=== PATIENT | female | born 1955 | race Caucasian/White ===

== ENCOUNTER 2016-06-22 18:29 | Emergency (ER) | payer OTHER, BC ==
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
[2016-06-22 18:45] VITALS: BP 140/88; PULSE 68; TEMP 99; BMI 25.8
[2016-06-22] MEDS ORDERED: IBUPROFEN 600 MG TABLET (FP) PO ONE ×2 (18:49→18:55)
[2016-06-22] MEDS ORDERED: CYCLOBENZAPRINE HCL 10 MG TABLET (FP) PO ONE (18:49)
[2016-06-22] MEDS ORDERED: CYCLOBENZAPRINE HCL 10 MG TABLET (FP) ONE (18:55)
== END 2016-06-22 19:36 | disposition home or self-care (01) ==
LOC: FER 18:29
DX: M54.5 Low back pain (principal); V43.52XA Car driver injured in collision with other type car in traffic accident, initial encounter; Y93.89 Activity, other specified; Y92.410 Unspecified street and highway as the place of occurrence of the external cause
CPT/HCPCS: 72070-TC; 72100-TC; 99282-25

== ENCOUNTER 2018-05-23 08:40 | Emergency (ER) | payer BC, OTHER ==
[2018-05-23 08:52] VITALS: PULSE 58; TEMP 98.5; BMI 25.8
[2018-05-23] MEDS ORDERED: IBUPROFEN 600 MG TABLET (FP) PO ONE ×2 (09:25→09:26)
--- NOTE | 2018-05-23 09:35 | PDOC ---
History of Present Illness - General Chief Complaint: Injury Stated Complaint: RIGHT KNEE AN DRIGHT WRIST INJURY S/P FALL AT WORK Time Seen by Provider: 05/23/18 08:46 History Source: Patient Exam Limitations: No Limitations - History of Present Illness Timing/Duration: 1-3 hours Severity: moderate Modifying Factors: improves with: rest Associated Symptoms: reports: denies symptoms Past History - Travel Traveled outside of the country in the last 30 days: No Close contact w/someone who was outside of country & ill: No - Past Medical History Allergies/Adverse Reactions: Allergies Allergy/AdvReac Type Severity Reaction Status Date / Time No Known Allergies Allergy Verified 05/23/18 08:41 Home Medications: Ambulatory Orders NK [No Known Home Medication] 05/23/18 COPD: No - Suicide/Smoking/Psychosocial Hx Smoking History: Never smoked Hx Alcohol Use: No Drug/Substance Use Hx: No Substance Use Type: None Review of Systems - Review of Systems Able to Perform ROS?: Yes Is the patient limited Portuguese proficient: Yes Constitutional: No: Symptoms Reported, See HPI, Chills, Diaphoresis, Fever, Loss of Appetite, Malaise, Night Sweats, Weakness, Weight Stable, Unintentional Wgt. Loss, Unexplained wgt Loss, Other HEENTM: No: Symptoms Reported, See HPI, Eye Pain, Blurred Vision, Tearing, Recent change in vision, Double Vision, Cataracts, Ear Pain, Ocular Prothesis, Ear Discharge, Nose Pain, Nose Congestion, Tinnitus, Nose Bleeding, Hearing Loss , Throat Pain, Throat Swelling, Mouth Pain, Dental Problems, Difficulty Swallowing, Mouth Swelling, Other Respiratory: No: Symptoms reported, See HPI, Cough, Orthopnea, Shortness of Breath, SOB with Exertion, SOB at Rest, Stridor, Wheezing, Productive cough, Hemoptysis, Other Cardiac (ROS): No: Symptoms Reported, See HPI, Chest Pain, Edema, Irregular Heart Rate, Lightheadedness, Palpitations, Syncope, Chest Tightness, Other ABD/GI: No: Symptoms Reported, See HPI, Abdominal Distended, Abd. Pain w/ defecation, Blood Streaked Bowels, Constipated, Diarrhea, Difficulty Swallowing , Nausea, Poor Appetite, Poor Fluid Intake, Rectal Bleeding, Vomiting, Indigestion, Abdominal cramping, Tarry Stools, Other : No: Symptoms Reported, See HPI, Burning, Dysuria, Discharge, Frequency, Flank Pain, Hematuria, Incontinence, Pain, Urgency, Testicular Mass, Testicular Swelling, Lesions, Testicular Pain, Other Musculoskeletal: Yes: See HPI, Joint Pain Integumentary: No: Symptoms Reported, See HPI, Bruising, Change in Color, Change in Hair/Nails, Dryness, Erythema, Flushing, Lesions, Lumps, Pallor, Pruritus, Rash, Sweating, Other Neurological: Yes: See HPI Endocrine: No: Intolerance to Cold All Other Systems: Reviewed and Negative *Physical Exam - Vital Signs Last Vital Signs Temp Pulse Resp BP Pulse Ox 98.5 F 58 L 18 168/71 100 05/23/18 08:40 05/23/18 08:40 05/23/18 08:40 05/23/18 08:40 05/23/18 08:40 - Physical Exam General Appearance: Yes: Nourished, Appropriately Dressed, Mild Distress, Moderate Distress HEENT: positive: CONSTANCE Neck: positive: Supple Respiratory/Chest: positive: Normal Breath Sounds Cardiovascular: positive: S1, S2 Extremity: positive: Normal Capillary Refill, Tender (Mild to moderate tenderness in the affected wrist, knee and hip-inguinal areas ar passive motion ), Pelvis Stable, Swelling (Minimally swollen knee without any skin damage. Full range of motion all extremities) Neurologic: positive: Fully Oriented, Alert, Normal Mood/Affect Medical Decision Making - Medical Decision Making Fully ambulating lady, X rays wnl as read by me Provided with cane for support and wrist splint Patient will follow with Private Ortho MD, [facility] CD provided 05/25/18 16:30 *DC/Admit/Observation/Transfer Diagnosis at time of Disposition: Right knee injury Qualifiers: Encounter type: initial encounter Qualified Code(s): S89.91XA - Unspecified injury of right lower leg, initial encounter Injury of hip, right Qualifiers: Encounter type: initial encounter Qualified Code(s): S79.911A - Unspecified injury of right hip, initial encounter Right wrist injury Qualifiers: Encounter type: initial encounter Qualified Code(s): S69.91XA - Unspecified injury of right wrist, hand and finger(s), initial encounter - Discharge Dispostion Disposition: HOME Condition at time of disposition: Stable Decision to Admit order: No - Referrals Referrals: Bertrand White MD [Staff Physician] - - Patient Instructions Printed Discharge Instructions: DI for Knee Sprain, How to Prevent Falls - Post Discharge Activity Forms/Work/School Notes: Back to Work
[2018-05-23 11:27] VITALS: BP 140/72
== END 2018-05-23 11:17 | disposition home or self-care (01) ==
LOC: FER 08:40
DX: S79.911A Unspecified injury of right hip, initial encounter (principal); S69.91XA Unspecified injury of right wrist, hand and finger(s), initial encounter; S89.91XA Unspecified injury of right lower leg, initial encounter; W18.39XA Other fall on same level, initial encounter; Y93.89 Activity, other specified; Y92.89 Other specified places as the place of occurrence of the external cause; Y99.0 Civilian activity done for income or pay
CPT/HCPCS: 73110-TC-RT-FY; 73523-TC-FY; 73560-TC-RT-FY; 99282-25

== ENCOUNTER 2018-09-30 10:54 | Emergency (ER) | payer OTHER ==
[2018-09-30 11:09] VITALS: BP 126/77; PULSE 73; TEMP 98.2; BMI 40.3
[2018-09-30] MEDS ORDERED: IBUPROFEN 600 MG TABLET (FP) PO ONE ×2 (11:32→11:37)
[2018-09-30] MEDS ORDERED: hydrOXYzine PAMOATE 25 MG CAPSULE (FP) PO ONE ×2 (11:32→11:37)
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
[2018-09-30] MEDS ORDERED: LIDOCAINE 5% TOPICAL PATCH ONE (12:05)
== END 2018-09-30 12:10 | disposition home or self-care (01) ==
LOC: FER 10:54
DX: S13.4XXA Sprain of ligaments of cervical spine, initial encounter (principal); V43.52XA Car driver injured in collision with other type car in traffic accident, initial encounter; Y93.89 Activity, other specified; Y92.410 Unspecified street and highway as the place of occurrence of the external cause
CPT/HCPCS: 99282-25

== ENCOUNTER 2020-01-21 13:25 | Emergency (ER) | payer BC ==
[2020-01-21 13:32] VITALS: BP 149/77; PULSE 73; TEMP 99; BMI 27.4
[2020-01-21] MEDS ORDERED: ACETAMINOPHEN 1000 MG/100 ML VIAL (NON FORMULARY) IVPB ONE (13:45)
[2020-01-21] MEDS ORDERED: SODIUM CHLORIDE 0.9% 500 ML INFUS.BAG IV ONE (13:45)
[2020-01-21] MEDS ORDERED: ACETAMINOPHEN INJECTION 100 ML IVPB ONE (13:58)
[2020-01-21 14:06] LABS: BASO % 3.2 % (0-2.0); EOS % 1.3 % (0-4.5); HEMATOCRIT 42.7 % (32.4-45.2); HEMOGLOBIN 14.5 GM/dl (10.7-15.3); LYMPH % 36.2 % (8-40); MCH 31.5 pg (25.7-33.7); MCHC 33.9 g/dl (32.0-36.0); MEAN CELL VOLUME 93.1 fl (80-96); MEAN PLT VOLUME 9.8 fl (7.5-11.1); MONO % 8.7 % (3.8-10.2); NEUT % 50.6 % (42.8-82.8); PLATELET COUNT 222 K/MM3 (134-434); RBC 4.59 M/mm3 (3.60-5.2); RDW 12.5 % (11.6-15.6); WHITE BLOOD COUNT 6.8 K/mm3 (4.0-10.8)
[2020-01-21 14:15] LABS: EPITHELIAL CELLS FEW /hpf
[2020-01-21 14:16] LABS: ALBUMIN 4.1 g/dl (3.4-5.0); BILIRUBIN,TOTAL 0.8 mg/dl (0.2-1); CALCIUM 8.7 mg/dl (8.5-10); CREATININE 0.9 mg/dl (0.55-1.3); POTASSIUM 4.1 mmol/L (3.5-5.1); TOT PROT 7.5 g/dl (6.4-8.2)
[2020-01-21] MEDS ORDERED: morphine CARPU-JECT 4 MG/1 ML DISP.SYRIN IVPUSH ONE (15:04)
[2020-01-21] MEDS ORDERED: morphine SULFATE 4 MG/ML VIAL ONE (15:05)
== END 2020-01-21 15:50 | disposition home or self-care (01) ==
LOC: FER 13:25
PROC: 3E0333Z Introduction of Anti-inflammatory into Peripheral Vein, Percutaneous Approach (ICD-10-PCS; principal; 2020-01-21)
PROC: 3E033NZ Introduction of Analgesics, Hypnotics, Sedatives into Peripheral Vein, Percutaneous Approach (ICD-10-PCS; 2020-01-21)
DX: K59.00 Constipation, unspecified (principal)
CPT/HCPCS: 36415; 74177-TC; 80053; 81003; 81015; 84484; 85025; 87086; 99285-25; J0131; Q9967

== ENCOUNTER 2020-01-21 19:29 | Emergency (ER) | payer BC | END 2020-01-21 19:35 | disposition home or self-care (01) | LOC: JVIRT 19:29 | DX: U07.1 COVID-19 (principal) | CPT/HCPCS: C9803; Q3014-GT; U0003 ==

== ENCOUNTER 2021-06-03 04:07 | Inpatient (IN) | payer BC, OTHER ==
[2021-06-02 09:53] VITALS: BMI 26.6
[~2021-06-03 04:07] MED LIST: BACITRACIN 15 GM TUBE TOPICAL OINTMENT TP ONE; BUPIVACAINE HCL/PF 0.5% (5MG/ML) 10 ML VIAL NR ONE
[2021-06-03] MEDS ORDERED: THROMBIN (BOVINE) 5,000 UNIT VIAL TP ONE ×4 (07:43→09:06)
[2021-06-03] MEDS ORDERED: BUPIVACAINE HCL/PF 0.5% (5MG/ML) 10 ML VIAL ONE ×2 (07:43→12:08)
[2021-06-03] MEDS ORDERED: BACITRACIN 15 GM TUBE TOPICAL OINTMENT ONE (07:43)
[2021-06-03] MEDS ORDERED: MIDAZOLAM HCL 2 MG/2 ML SINGLE DOSE VIAL ONE (07:54)
[2021-06-03] MEDS ORDERED: ROCURONIUM BROMIDE 50 MG/5 ML SYRINGE ONE (07:55)
[2021-06-03] MEDS ORDERED: PROPOFOL 20 ML ONE ×9 (07:56→10:19)
[2021-06-03] MEDS ORDERED: SUCCINYLCHOLINE CHLORIDE 200 MG/10 ML SYRINGE ONE (07:56)
[2021-06-03] MEDS ORDERED: VANCOMYCIN 1,000 MG VIAL (RESTRICTED TO ID ONLY) ONE (08:23)
[2021-06-03] MEDS ORDERED: ceFAZolin SODIUM 1 GM VIAL IVPB ONE (08:45)
[2021-06-03] MEDS ORDERED: VANCOMYCIN 1,000 MG VIAL (RESTRICTED TO ID ONLY) IVPB ONE (09:06)
[2021-06-03] MEDS ORDERED: BUPIVACAINE HCL/PF 0.5% (5MG/ML) 10 ML VIAL NR ONE (12:06)
[2021-06-03] MEDS ORDERED: ACETAMINOPHEN 1000 MG/100 ML BAG IVPB ONE (12:30)
[2021-06-03] MEDS ORDERED: SUGAMMADEX SODIUM 200 MG/2 ML VIAL ONE (12:35)
[2021-06-03] MEDS ORDERED: ACETAMINOPHEN INJECTION 100 ML IVPB ONE (12:40)
[2021-06-03] MEDS ORDERED: ONDANSETRON 4 MG/2 ML VIAL IVPUSH PRN ×2 (12:45→13:28)
[2021-06-03] MEDS ORDERED: BISACODYL 10 MG SUPP.RECT RC PRN (12:45)
[2021-06-03] MEDS ORDERED: BACITRACIN 15 GM TUBE TOPICAL OINTMENT TP ONE (13:00)
[2021-06-03] MEDS ORDERED: DEXAMETHASONE SOD PHOSPHATE 4 MG/1 ML VIAL IVPUSH ONE (13:28)
[2021-06-03] MEDS ORDERED: PROMETHAZINE HCL 25 MG/1 ML VIAL IVPB PRN (13:28)
[2021-06-03] MEDS ORDERED: DEXAMETHASONE SOD PHOSPHATE 4 MG/1 ML VIAL IVPUSH PRN (13:41)
[2021-06-03 14:04] LABS: HEMATOCRIT 38.1 % (32.4-45.2); HEMOGLOBIN 12.8 GM/dL (10.7-15.3); MCHC 33.6 g/dl (32.0-36.0); MEAN CELL VOLUME 89.1 fl (80-96); MEAN PLT VOLUME 8.7 fl (7.5-11.1); PLATELET COUNT 195 10^3/uL (134-434); RBC 4.27 M/mm3 (3.60-5.2); RDW 12.9 % (11.6-15.6); WHITE BLOOD COUNT 7.9 K/mm3 (4.0-10.0)
[2021-06-03] MEDS ORDERED: HYDROmorphone *PCA* 10MG/50ML DISP.SYRIN ONE (14:15)
[2021-06-03] MEDS ORDERED: HYDROmorphone *PCA* 10MG/50ML DISP.SYRIN PCA ONE (14:30)
[2021-06-03 14:49] LABS: CALCIUM 7.9 mg/dL (8.5-10.1)
[2021-06-03 14:50] LABS: BLOOD UREA NITROGEN 13.5 mg/dL (7-18)
[2021-06-03 14:53] LABS: CREATININE 0.8 mg/dL (0.55-1.3)
[2021-06-03] MEDS: D5-1/2NS+20 MEQ KCL - 20 MEQ/1,000 ML INFUS.BAG IV SCH (15:38)
[2021-06-03] MEDS: diazePAM 5 MG TABLET PO SCH ×2 (15:38→21:07)
[2021-06-03] MEDS: HYDROmorphone *PCA* 10MG/50ML DISP.SYRIN PCA SCH (15:39)
[2021-06-03] MEDS: LACTATED RINGERS SOLUTION 1,000 ML IV SCH (15:40)
[2021-06-03] MEDS: DOCUSATE SODIUM 100 MG CAPSULE (FP) PO SCH ×2 (15:41→21:06)
[2021-06-03] MEDS ORDERED: ceFAZolin SODIUM 1 GM VIAL ONE (17:58)
[2021-06-03] MEDS ORDERED: DEXTROSE 5%-WATER - 50 ML IVPB ONE (17:58)
[2021-06-03] MEDS: CEFAZOLIN 1 GM in DEXTROSE 5%-WATER - 50 ML IVPB SCH (18:05)
[2021-06-04] MEDS: D5-1/2NS+20 MEQ KCL - 20 MEQ/1,000 ML INFUS.BAG IV SCH ×3 (00:05→17:18)
[2021-06-04] MEDS ORDERED: ceFAZolin SODIUM 1 GM VIAL ONE ×2 (01:18→10:09)
[2021-06-04] MEDS ORDERED: DEXTROSE 5%-WATER - 50 ML IVPB ONE ×2 (01:19→10:09)
[2021-06-04] MEDS: CEFAZOLIN 1 GM in DEXTROSE 5%-WATER - 50 ML IVPB SCH ×2 (01:28→11:19)
[2021-06-04] MEDS: ACETAMINOPHEN 325 MG TABLET (FP) PO PRN ×2 (03:57→13:01)
[2021-06-04] MEDS: diazePAM 5 MG TABLET PO SCH ×3 (05:12→21:39)
[2021-06-04] MEDS: DOCUSATE SODIUM 100 MG CAPSULE (FP) PO SCH ×3 (05:13→21:39)
[2021-06-04] MEDS: LACTATED RINGERS SOLUTION 1,000 ML IV SCH (13:30)
[2021-06-04] MEDS: HYDROmorphone *PCA* 10MG/50ML DISP.SYRIN PCA SCH (14:41)
[2021-06-05] MEDS: ACETAMINOPHEN 325 MG TABLET (FP) PO PRN ×4 (00:18→21:34)
[2021-06-05] MEDS: diazePAM 5 MG TABLET PO SCH ×3 (05:00→21:34)
[2021-06-05] MEDS: DOCUSATE SODIUM 100 MG CAPSULE (FP) PO SCH ×3 (05:00→21:34)
[2021-06-05] MEDS: D5-1/2NS+20 MEQ KCL - 20 MEQ/1,000 ML INFUS.BAG IV SCH ×2 (06:17→14:18)
[2021-06-05] MEDS ORDERED: TAPENTADOL HYDROCHLORIDE 50 MG TABLET PO PRN (07:32)
[2021-06-05] MEDS: LACTATED RINGERS SOLUTION 1,000 ML IV SCH (14:19)
[2021-06-06] MEDS: diazePAM 5 MG TABLET PO SCH ×3 (05:04→21:40)
[2021-06-06] MEDS: DOCUSATE SODIUM 100 MG CAPSULE (FP) PO SCH ×3 (05:05→21:40)
[2021-06-06] MEDS: D5-1/2NS+20 MEQ KCL - 20 MEQ/1,000 ML INFUS.BAG IV SCH ×2 (06:27→14:50)
[2021-06-06] MEDS: LACTATED RINGERS SOLUTION 1,000 ML IV SCH (13:48)
[2021-06-06] MEDS: HEPARIN NA (PORCINE) 5,000 UNITS/ML 1ML VIAL SQ SCH (21:40)
[2021-06-07] MEDS: DOCUSATE SODIUM 100 MG CAPSULE (FP) PO SCH ×3 (06:00→21:04)
[2021-06-07] MEDS: diazePAM 5 MG TABLET PO SCH ×3 (06:00→21:05)
[2021-06-07] MEDS ORDERED: MAGNESIUM CITRATE 300 ML BOTTLE PO ONE ×2 (08:30→11:00)
[2021-06-07] MEDS: HEPARIN NA (PORCINE) 5,000 UNITS/ML 1ML VIAL SQ SCH ×2 (11:08→21:05)
[2021-06-07] MEDS: ACETAMINOPHEN 325 MG TABLET (FP) PO PRN (11:08)
[2021-06-07 13:19] LABS: EPI CELLS 12 /uL (0-25.1); HYALINE CASTS 1 /uL (0-3.1); URINE APPEARANCE CLEAR; URINE BACTERIA 1 /uL (0-1359); URINE BILIRUBIN NEGATIVE (NEGATIVE); URINE COLOR YELLOW; URINE GLUCOSE (UA) NEGATIVE (NEGATIVE); URINE KETONE NEGATIVE (NEGATIVE); URINE LEUK ESTERASE 1+ (NEGATIVE); URINE NITRITE NEGATIVE (NEGATIVE); URINE PROTEIN NEGATIVE (NEGATIVE); URINE RBC 37 /uL (0-23.9); URINE WBC 18 /uL (0-25.8)
[2021-06-08] MEDS: DOCUSATE SODIUM 100 MG CAPSULE (FP) PO SCH ×2 (05:24→14:55)
[2021-06-08] MEDS: diazePAM 5 MG TABLET PO SCH ×2 (05:24→14:56)
[2021-06-08 09:41] LABS: BASO % 0.9 % (0-2.0); EOS % 1.3 % (0-4.5); HEMATOCRIT 35.5 % (32.4-45.2); HEMOGLOBIN 12.3 GM/dL (10.7-15.3); LYMPH % 26.7 % (8-40); MCH 30.8 pg (25.7-33.7); MCHC 34.8 g/dl (32.0-36.0); MEAN CELL VOLUME 88.7 fl (80-96); MEAN PLT VOLUME 9.8 fl (7.5-11.1); MONO % 8.2 % (3.8-10.2); NEUT % 62.9 % (42.8-82.8); PLATELET COUNT 259 10^3/uL (134-434); RDW 12.9 % (11.6-15.6); WHITE BLOOD COUNT 7.8 K/mm3 (4.0-10.0)
[2021-06-08] MEDS: HEPARIN NA (PORCINE) 5,000 UNITS/ML 1ML VIAL SQ SCH (09:54)
[2021-06-08 11:09] LABS: CALCIUM 8.3 mg/dL (8.5-10.1)
[2021-06-08 11:10] LABS: ALBUMIN 2.9 g/dl (3.4-5.0); BLOOD UREA NITROGEN 11.6 mg/dL (7-18)
[2021-06-08 11:13] LABS: CREATININE 0.8 mg/dL (0.55-1.3)
[2021-06-08 11:14] LABS: TOT PROT 7.1 g/dl (6.4-8.2)
[2021-06-08 11:15] LABS: BILIRUBIN,TOTAL 0.7 mg/dL (0.2-1)
[2021-06-08 16:00] VITALS: BP 123/64; PULSE 68; TEMP 98.4
== END 2021-06-08 16:56 | disposition home or self-care (01) | DRG 455 ==
LOC: J2C 04:07 → J8W 15:32
PROVIDERS: ADMIT Neurological Surgery; ATTEND Neurological Surgery
PROC: 0SG1071 Fusion of 2 or more Lumbar Vertebral Joints with Autologous Tissue Substitute, Posterior Approach, Posterior Column, Open Approach (ICD-10-PCS; 2021-06-03)
PROC: 0SB20ZZ Excision of Lumbar Vertebral Disc, Open Approach (ICD-10-PCS; 2021-06-03)
PROC: 01NB0ZZ Release Lumbar Nerve, Open Approach (ICD-10-PCS; 2021-06-03)
PROC: 4A10X4G Monitoring of Central Nervous Electrical Activity, Intraoperative, External Approach (ICD-10-PCS; 2021-06-03)
PROC: 0SG10AJ Fusion of 2 or more Lumbar Vertebral Joints with Interbody Fusion Device, Posterior Approach, Anterior Column, Open Approach (ICD-10-PCS; principal; 2021-06-03 08:00)
DX: M48.061 Spinal stenosis, lumbar region without neurogenic claudication (principal); M51.16 Intervertebral disc disorders with radiculopathy, lumbar region; M85.88 Other specified disorders of bone density and structure, other site
CPT/HCPCS: 36415; 71045-TC-FY; 72100-TC-FY; 76000-TC-FY; 80048; 80053; 81003; 85025; 85027; 86850; 86900; 86901; 86922; 87086; 88304-TC; 94760; 97116-GP; 97161-GP; J1644

== ENCOUNTER 2023-08-29 14:11 | Emergency (ER) | payer BC, OTHER ==
[2023-08-29 14:29] VITALS: BP 138/73; PULSE 67; RESP 19; TEMP 98.5; BMI 25.8
== END 2023-08-29 15:22 | disposition home or self-care (01) ==
LOC: JERFT 14:11
DX: R21 Rash and other nonspecific skin eruption (principal)
CPT/HCPCS: 99282-25

== ENCOUNTER 2023-09-09 16:51 | Emergency (ER) | payer BC ==
[2023-09-09 16:57] VITALS: BMI 25.8
[2023-09-09] MEDS ORDERED: ACETAMINOPHEN INJECTION 100 ML IVPB ONE (19:33)
[2023-09-09] MEDS: ACETAMINOPHEN 1000 MG/100 ML BAG IVPB ONE (19:47)
[2023-09-09 19:54] LABS: BASO % 0.9 % (0-2.0); EOS % 0.7 % (0-4.5); HEMATOCRIT 41.7 % (32.4-45.2); HEMOGLOBIN 14.3 GM/dL (10.7-15.3); LYMPH % 24.7 % (8-40); MCHC 34.2 g/dl (32.0-36.0); MEAN CELL VOLUME 90.7 fl (80-96); MEAN PLT VOLUME 8.1 fl (7.5-11.1); MONO % 8.3 % (3.8-10.2); NEUT % 65.4 % (42.8-82.8); PLATELET COUNT 206 10^3/uL (134-434); RDW 13.6 % (11.6-15.6); WHITE BLOOD COUNT 8.1 K/mm3 (4.0-10.0)
[2023-09-09 20:23] LABS: POTASSIUM 3.8 mmol/L (3.5-5.1)
[2023-09-09 20:26] LABS: ALBUMIN 3.9 g/dl (3.4-5.0); BLOOD UREA NITROGEN 12.5 mg/dL (7-18); CALCIUM 8.6 mg/dL (8.5-10.1)
[2023-09-09 20:31] LABS: BILIRUBIN,TOTAL 0.5 mg/dL (0.2-1); TOT PROT 7.6 g/dl (6.4-8.2)
[2023-09-09 21:57] LABS: EPI CELLS 4 /uL (0-25.1); HYALINE CASTS 1 /uL (0-3.1); PH,URINE 6.5 (5.0-8.0); URINE APPEARANCE CLEAR; URINE BACTERIA 204 /uL (0-1359); URINE BILIRUBIN NEGATIVE (NEGATIVE); URINE COLOR YELLOW; URINE GLUCOSE (UA) NEGATIVE (NEGATIVE); URINE KETONE NEGATIVE (NEGATIVE); URINE LEUK ESTERASE 3+ (NEGATIVE); URINE NITRITE NEGATIVE (NEGATIVE); URINE PROTEIN NEGATIVE (NEGATIVE); URINE RBC 67 /uL (0-23.9); URINE UROBILINOGEN 0.2 mg/dL (0.2-1.0); URINE WBC 259 /uL (0-25.8)
[2023-09-09] MEDS ORDERED: CEFTRIAXONE 1 GM/50 ML BAG ONE (22:18)
[2023-09-09] MEDS ORDERED: KETOROLAC TROMETHAMINE 15 MG/ML VIAL ONE (22:18)
[2023-09-09] MEDS: KETOROLAC TROMETHAMINE 15 MG/ML VIAL IVPUSH ONE (22:23)
[2023-09-09] MEDS: CEFTRIAXONE 1 GM in DEXTROSE 5%-WATER - 50 ML IVPB ONE (22:23)
[2023-09-10] MEDS: ACETAMINOPHEN 1000 MG/100 ML BAG IVPB ONE (03:43)
[2023-09-10] MEDS: SODIUM CHLORIDE 1,000 ML IV STA (03:43)
[2023-09-10] MEDS ORDERED: ACETAMINOPHEN INJECTION 100 ML IVPB ONE (03:45)
[2023-09-10] MEDS ORDERED: KETOROLAC TROMETHAMINE 15 MG/ML VIAL ONE (04:01)
[2023-09-10] MEDS: KETOROLAC TROMETHAMINE 15 MG/ML VIAL IVPUSH ONE (04:24)
[2023-09-10 07:39] VITALS: BP 167/85; PULSE 55; RESP 16; TEMP 97.7
[2023-09-10] MEDS ORDERED: MORPHINE SULFATE 2 MG/ML SYRINGE ONE (08:03)
[2023-09-10] MEDS: morphine SULFATE 4 MG/ML VIAL IVPUSH ONE (08:16)
== END 2023-09-10 08:28 | disposition home or self-care (01) ==
LOC: JER 16:51
PROC: 3E03329 Introduction of Other Anti-infective into Peripheral Vein, Percutaneous Approach (ICD-10-PCS; principal; 2023-09-09)
PROC: 3E033NZ Introduction of Analgesics, Hypnotics, Sedatives into Peripheral Vein, Percutaneous Approach (ICD-10-PCS; 2023-09-09)
PROC: 3E0333Z Introduction of Anti-inflammatory into Peripheral Vein, Percutaneous Approach (ICD-10-PCS; 2023-09-09)
PROC: 3E0333Z Introduction of Anti-inflammatory into Peripheral Vein, Percutaneous Approach (ICD-10-PCS; 2023-09-09)
PROC: 3E0337Z Introduction of Electrolytic and Water Balance Substance into Peripheral Vein, Percutaneous Approach (ICD-10-PCS; 2023-09-09)
DX: R10.12 Left upper quadrant pain (principal)
CPT/HCPCS: 36415; 71046-TC-FY; 74177-TC; 80053; 81003; 83690; 84484; 85025; 93005; 93010; 99285-25; J0131; Q9967

== ENCOUNTER 2024-12-23 09:21 | Emergency (ER) | payer BC, OTHER ==
[2024-12-23 09:29] VITALS: RESP 16; TEMP 97.9; BMI 27.4
[2024-12-23] MEDS ORDERED: MECLIZINE HCL 25 MG TABLET (FP) ONE (10:12)
[2024-12-23] MEDS: MECLIZINE HCL 25 MG TABLET (FP) PO ONE (10:21)
[2024-12-23] MEDS: SODIUM CHLORIDE 0.9% 500 ML INFUS.BAG IV ONE (10:21)
[2024-12-23 10:22] LABS: ABSOLUTE IMMATURE GRANULOCYTES 0.01 x10^3/uL (0.0-0.031); BASOPHILS # 0.03 x10^3/uL (0.01-0.08); EOSINOPHIL % 1.5 % (0.7-5.8); EOSINOPHILS # 0.07 x10^3/uL (0.04-0.36); MCHC 35.1 g/dl (32.2-35.5); MEAN CELL VOLUME 95.6 fl (79.4-94.8); MEAN PLT VOLUME 10.2 fl (9.4-12.3); MONOCYTE # 0.41 x10^3/uL (0.24-0.86); MONOCYTE % 8.8 % (4.7-12.5); RDW 11.6 % (12.4-16.4)
[2024-12-23 10:39] LABS: GLUCOSE,RANDOM 132.0 mg/dL (74-106); TOT PROT 7.4 g/dl (6.4-8.2)
[2024-12-23 10:40] LABS: CO2 30.0 mmol/L (21-32)
[2024-12-23 10:42] LABS: ALK PHOS 61.0 U/L (40-150)
[2024-12-23 10:44] LABS: SGPT/ALT 32.0 U/L (0-55)
[2024-12-23 10:45] LABS: CREATININE 0.86 mg/dL (0.55-1.3); SGOT/AST 32.0 U/L (5-34)
[2024-12-23 11:10] LABS: HCV DIAGNOSTIC IN-HOUSE W/RFLX NON-REACTIVE (NONREACTIVE); HIV INTERPRETATION NEGATIVE (NEGATIVE)
[2024-12-23 12:20] VITALS: BP 134/66; PULSE 55
== END 2024-12-23 12:21 | disposition home or self-care (01) ==
LOC: JER 09:21
DX: R42 Dizziness and giddiness (principal); R11.2 Nausea with vomiting, unspecified
CPT/HCPCS: 36415; 70450-TC; 71046-TC-FY; 80053; 82962; 83735; 84484; 85025; 86803; 87389; 93005; 93010; 99285-25